=== PATIENT | female | born 1995 | race African-American/Black ===

== ENCOUNTER 2019-10-29 16:40 | Observation (INO) | payer MEDICAID, OTHER ==
[~2019-10-29] VITALS: Ht 167.6 cm; Wt 74.8 kg
[2019-10-29] MEDS ORDERED: CEPHALEXIN 250 MG CAP PO ONE ×2 (17:42→17:45)
[2019-10-29] MEDS ORDERED: PREN-96 PO (17:47)
== END 2019-10-29 18:00 | disposition home or self-care (01) | DRG 566 ==
LOC: LDRP 16:40
PROVIDERS: ADMIT Obstetrics & Gynecology; ATTEND Obstetrics & Gynecology
DX: O99.89 Other specified diseases and conditions complicating pregnancy, childbirth and the puerperium (principal); M79.89 Other specified soft tissue disorders; O26.893 Other specified pregnancy related conditions, third trimester; R10.10 Upper abdominal pain, unspecified; Z3A.37 37 weeks gestation of pregnancy
CPT/HCPCS: 59025; 81002; G0378